=== PATIENT | male | born 1975 | race Caucasian/White ===

== ENCOUNTER 2019-08-20 08:32 | Emergency (ER) | payer BC ==
[2019-08-20 08:38] VITALS: BP 149/98
--- OUTSIDE RECORDS SUMMARY | 2019-08-20 08:52 | XMS REPORT | Continuity of Care Document ---
:1975 External Reference #:[id number] Author Name Fuad Montalvo Address [address] [place] [address] Care Team Providers Name Role Phone Shyam Schumacher MD - Family Care Team Information [place] [phone] Medicine Problems Description No Information Available Social History Type Date Description Comments Sex Unknown ETOH Use Occasional Recreational Drug Use Denies Drug Use Exercise Type/Frequency Exercises regularly runs, hikes bikes 5-6 x week Allergies, Adverse Reactions, Alerts Description No Known Drug Allergies Medications Active Medications SIG Qnty Indications Ordering Provider Date Trazodone HCL take 1-2 tablet 30tabs Mireille Arce, 08/01/2019 50mg by mouth at [facility] Tablets bedtime prn insomnia History Medications No Active Medications Fuad Montalvo 08/01/2019 - 08/01/2019 Immunizations Description No Information Available Vital Signs Date Vital Result Comment 08/01/2019 3:20pm BP Systolic 140 mmHg BP Diastolic 100 mmHg Heart Rate 80 /min Body Temperature 98.4 F Respiratory Rate 16 /min Height 69 inches 5'9" Weight 153.00 lb BMI (Body Mass Index) 22.6 kg/m2 Results Description No Information Available Procedures Description No Information Available Medical Devices Description No Information Available Encounters Description No Information Available Assessments Date Code Description Provider 08/01/2019 H92.02 Otalgia, left ear Fuad Montalvo 08/01/2019 G47.00 Insomnia, unspecified Fuad Montalvo 08/01/2019 R03.0 Elevated blood-pressure reading, without Fuad Montalvo diagnosis of hypertension 08/01/2019 F43.22 Adjustment disorder with anxiety Fuad Montalvo Plan of Treatment 08/01/2019 - Mireille Arce, [facility]-CH92.02 Otalgia, left earG47.00 Insomnia, unspecifiedFollow up:Followup:. (Follow up)R03.0 Elevated blood-pressure reading , without diagnosis of hypertensionFollow up:Followup:. (Follow up)F43.22 Adjustment disorder with anxietyAllNew Medication:Trazodone HCL 50 mg - take 1- 2 tablet by mouth at bedtime prn insomniaNo Active Medications -Comments: Medication Management Patient Understands medications he's taking? Yes No no rx meds Are there Barriers to Adherence? Yes Jayleen Has the patient been asked about herbal supplements and therapies, and OTC meds? Yes No Care Plan1. Patient has been queried about patient's goals/ preferences and functional/lifestyle goals at relevant visits. If relevant, describe: na2. Treatment goals as explained to the patient: abovenormotension improved sleep 3. Are there barriers to meeting treatment goals? Yes No If Yes, please describe:4. Self-Management goals as describedto the patient : Yes No declines trial nasal steroid, discussed ent eval keep home bp diary and f/u with readings in 2 weekstrial trazadone (fh of good effect for insomnia) discussed return to counseling Functional Status Description No Information Available Mental Status Description No Information Available Referrals Description No Information Available
--- OUTSIDE RECORDS SUMMARY | 2019-08-20 08:52 | XMS REPORT | Continuity of Care Document ---
:1975 External Reference #:[id number] Author Name DONTAE Paz Address [address] [facility] [place] [address] Care Team Providers Name Role Phone Shyam Schumacher MD - Family Care Team Information [facility] Care Facilities Medicine Problems Description No Information Available Social History Type Date Description Comments Sex Unknown ETOH Use Occasional Recreational Drug Use Denies Drug Use Exercise Type/Frequency Exercises regularly runs, hikes bikes 5-6 x week Allergies, Adverse Reactions, Alerts Description No Known Drug Allergies Medications Active Medications SIG Qnty Indications Ordering Provider Date Losartan Potassium 1 by mouth every 30tabs I10 Cari Almodovar, 2018 day H[employer]OTECH[employer] 25mg Tablets Lorazepam 1 by mouth twice 60tabs F43.22 Cari Almodovar, 08/10/2019 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 Paxil 1 by mouth every 90tabs F43.22 Cari Almodovar, 08/10/2019 10mg Tablets day HISTOTECHNOLOGIST Trazodone HCL take 1-2 tablet 30tabs Mireille Arce, 08/01/2019 50mg by mouth at [facility] Tablets bedtime prn insomnia History Medications No Active Medications Eyad Montalvo-C 08/01/2019 - 08/01/2019 Immunizations Description No Information Available Vital Signs Date Vital Result Comment 08/10/2019 2:03pm BP Systolic 132 mmHg BP Diastolic 98 mmHg Heart Rate 92 /min Body Temperature 97.7 F Height 69 inches 5'9" Weight 152.00 lb BMI (Body Mass Index) 22.4 kg/m2 08/01/2019 3:20pm BP Systolic 140 mmHg BP Diastolic 100 mmHg Heart Rate 80 /min Body Temperature 98.4 F Respiratory Rate 16 /min Height 69 inches 5'9" Weight 153.00 lb BMI (Body Mass Index) 22.6 kg/m2 Results Description No Information Available Procedures Description No Information Available Medical Devices Description No Information Available Encounters Description No Information Available Assessments Date Code Description Provider 08/10/2019 I10 Essential (primary) hypertension DONTAE Paz 08/10/2019 F43.22 Adjustment disorder with anxiety DONTAE Paz 08/10/2019 G47.00 Insomnia, unspecified DONTAE Paz 08/01/2019 H92.02 Otalgia, left ear Eyad Montalvo-[facility]ian 08/01/2019 G47.00 Insomnia, unspecified Eyad Montalvo-[facility]ian 08/01/2019 R03.0 Elevated blood-pressure reading, without Fuad Montalvo diagnosis of hypertension 08/01/2019 F43.22 Adjustment disorder with anxiety Fuad Montalvo Plan of Treatment Future Appointment(s):11/09/2019 8:00 am - DONTAE Paz at [facility] [id number]/10/2019 - [facility] PazPI10 Essential (primary) hypertensionNew Medication:Losartan Potassium 25 mg - 1 by mouth every dayF43.22 Adjustment disorder with anxietyNew Medication:Lorazepam 0.5 mg - 1 by mouth twice a day as needed anxietyPaxil 10 mg - 1 by mouth every dayComments :Start the paxil todayUse the lorazepam judiciously for the next week or soLet' s revisit all in 3-ishweeks--portal ideallyFollow up:3 months, sooner if you need usG47.00 Insomnia, unspecifiedAllComments:Medication Management Patient Understands medications he 's taking? Yes No Are there Barriers to Adherence? Yes No Has the patient been asked about herbal supplements and therapies, andOTC meds? Yes No As always, we strongly encourage a healthy diet and making physical activity a part of your every day life. If you have questions about how or where to start, please contact the office. Functional Status Description No Information Available Mental Status Description No Information Available Referrals Description No Information Available
[2019-08-20] MEDS ORDERED: Ketorolac INJ* 30 MG/ML 1 ML VIAL IV PUSH ONE (09:07)
[2019-08-20] MEDS ORDERED: NS 0.9% 1000 ML** 1,000 ML IV ONE (09:07)
--- NOTE | 2019-08-20 09:07 | ED ---
Throat Pain/Nasal Congestion - HPI Summary HPI Summary: Patient is a 44-year-old male who presents emergency department for reevaluation of left peritonsillar abscess. Pt. states he had it drained in the ENT office on Wednesday, 3 days ago. He is currently on clinda and prednisone. Pt. states that pain has increased and he can feel puss draining into his throat. Pt. states he is tolerating liquids and feels he is hydrated. No other past hx. Sxs are mild-moderate in severity. No current modifying factors. - History of Current Complaint Chief Complaint: EDThroatPain Time Seen by Provider: 08/20/19 08:41 Hx Obtained From: Patient - Allergies/Home Medications Allergies/Adverse Reactions: Allergies Allergy/AdvReac Type Severity Reaction Status Date / Time No Known Allergies Allergy Verified 08/20/19 08:37 PMH/Surg Hx/FS Hx/Imm Hx Previously Healthy: Yes Infectious Disease History: No Infectious Disease History: Denies: Traveled Outside the [place] in Last 30 Days - Family History Known Family History: Positive: Non-Contributory - Social History Occupation: Employed Full-time Lives: With Family Review of Systems Positive: Fever Positive: Sore Throat Cardiovascular: Negative Respiratory: Negative Gastrointestinal: Negative Negative: Vomiting, Nausea All Other Systems Reviewed And Are Negative: Yes Physical Exam Triage Information Reviewed: Yes Vital Signs On Initial Exam: Initial Vitals Temp Pulse Resp BP Pulse Ox 99.2 F 76 14 149/98 99 08/20/19 08:35 08/20/19 08:35 08/20/19 08:35 08/20/19 08:35 08/20/19 08:35 Vital Signs Reviewed: Yes Appearance: Positive: Well-Appearing - Pt. sitting on bed in NAD. Tired appearing. Skin: Positive: Warm, Dry Head/Face: Positive: Normal Head/Face Inspection Eyes: Positive: Normal, EOMI ENT: Positive: Other - Large left tonsilar abscess. Small amount of exudate on tonsil. Minimal trismus. Tolerating secretions. Neck: Positive: Enlarged Nodes @ - left cervical Respiratory/Lung Sounds: Positive: Clear to Auscultation, Breath Sounds Present Cardiovascular: Positive: Normal, RRR Neurological: Positive: Normal, CN Intact II-III Psychiatric: Positive: Affect/Mood Appropriate Diagnostics - Vital Signs Vital Signs Temp Pulse Resp BP Pulse Ox 08/20/19 08:35 99.2 F 76 14 149/98 99 - Laboratory Lab Statement: Any lab studies that have been ordered have been reviewed, and results considered in the medical decision making process. EENT Course/Dx - Course Course Of Treatment: Pt. with draining peritonsillar abscess. Tolerating POs. Case discussed with ENT Dr. Warner who examined pt. in the ED. He states pt. is okay to dc home and he will f.u with him in the office tomorrow. Pt. agreeable with plan. Small rx for lortab provided. - Differential Diagnoses Differential Diagnoses: Peritonsillar Ulcer - Diagnoses Provider Diagnoses: Peritonsillar abscess Discharge ED - Sign-Out/Discharge Documenting (check all that apply): Patient Departure Patient Received Moderate/Deep Sedation with Procedure: No - Discharge Plan Condition: Good Disposition: HOME Prescriptions: Hydrocodone/Acetaminophen [Hydrocodone-Acetamin 5-325 mg] 1 each PO Q6H #12 tablet MDD 4 Patient Education Materials: Peritonsillar Abscess (ED) Referrals: Ashish Warner MD [Medical Doctor] - Quiana Lopez PA [Primary Care Provider] - Additional Instructions: Follow up with Dr. Warner in his office tomorrow, 08/21/19 Continue antibiotics as directed Pain medication as directed Return to ER if symptoms change or worsen - Billing Disposition and Condition Condition: GOOD Disposition: Home
[2019-08-20] MEDS ORDERED: oxyCODONE/Acetamin 5/325 MG* TAB PO ONE (09:23)
--- NOTE | 2019-08-20 11:00 | CONS ---
CONSULTATION REPORT: DATE OF CONSULT: 08/20/19 LOCATION: Emergency room. HISTORY: This pleasant 44-year-old gentleman, peritonsillar abscess drained couple of days ago, continues to complain of some odynophagia and concerned that as he turns his neck, there is some drainage in his mouth. He is drinking well, he has no airway compromise, he is able to open his mouth quite widely. He has no significant neck swelling or discomfort. CLINICAL IMPRESSION: Draining peritonsillar abscess, continue on oral antibiotics. We will recheck him in the office tomorrow. No indication presently for any further opening of the drainage site. However, if it continues, I offered him a tonsillectomy electively in the next 2 days. [id number]/[facility] #: [id number] XIN
== END 2019-08-20 10:18 | disposition home or self-care (01) ==
LOC: ED 08:32
DX: J36 Peritonsillar abscess (principal); R50.9 Fever, unspecified
CPT/HCPCS: 99282; A9270-GY